=== PATIENT | female | born 1955 ===

== ENCOUNTER 2024-10-04 05:16 | Day surgery (SDC) | payer OTHER ==
[~2024-10-04 05:16] MED LIST: CALCIO; COZAAR100 MG PO; FOSAMAX70 MG; LIPITOR40 M1; METFORMIN HCL500 M3 PO; NORVASC2.5 MG PO; VITAMIN B-1100 MG
[2024-10-04] MEDS ORDERED: CEFAZOLIN SODIUM 1,000 MG VIAL IV ONE (11:15)
[2024-10-04] MEDS ORDERED: VANCOMYCIN HCL 1,000 MG VIAL IR ONE (11:15)
[2024-10-04] MEDS ORDERED: MACROBID 100 M100 MG PO (11:33)
[2024-10-04] MEDS ORDERED: TRAM1TAB98 PO (11:34)
== END 2024-10-04 15:00 | disposition home or self-care (01) ==
LOC: CIR.AMB 05:16
PROVIDERS: ATTEND Obstetrics & Gynecology Gynecology
DX: N81.11 Cystocele, midline (principal); N81.5 Vaginal enterocele